=== PATIENT | male | born 1935 | race Caucasian/White ===

== ENCOUNTER 2016-03-11 09:00 | Inpatient (IN) | payer OTHER ==
[~2016-03-11] VITALS: Ht 167.6 cm; Wt 81.6 kg
[2016-03-11] VITALS (7 sets, daily range): BP systolic 97–124; BP diastolic 43–63
[2016-03-11] MEDS ORDERED: ACETAMINOPHEN 500 MG TAB (TYLENOL) PO ONE (09:20)
[2016-03-11] MEDS ORDERED: HYDROmorphone 1 MG/ML (DILAUDID) SYRINGE IV ONE (09:20)
[2016-03-11 09:53] LABS: BASOPHILS % (AUTO) 0 % (0-2); EOSINOPHILS % (AUTO) 0 % (0-4); LYMPHOCYTES # (AUTO) 0.9 X10^3; MEAN CORPUSCULAR HGB CONC 33.1 g/dL (31.0-37.0); MEAN CORPUSCULAR VOLUME 96 FL (80-100); MEAN PLATELET VOLUME 10.7 FL (6.0-9.5); MONOCYTES # (AUTO) 1.1 X10^3; MONOCYTES % (AUTO) 10 % (3-11); NEUTROPHILS # (AUTO) 9.1 X10^3; NEUTROPHILS % (AUTO) 82 % (51-67); PLATELET COUNT 132 10^3uL (150-450); WHITE BLOOD COUNT 11.18 10^3uL (4.0-11.0)
[2016-03-11 09:55] LABS: MEAN CORPUSCULAR HEMOGLOBIN 31.8 PG (26.0-34.0)
[2016-03-11 09:56] LABS: CLARITY,URINE Clear; GLUCOSE, URINE (UA) Negative (Negative); LEUKOCYTE ESTERASE ,URINE Negative (Negative); PH,URINE 7.5 (5.0 - 8.0); UROBILINOGEN,URINE >=8.0 mg/dL (0.2-1.0)
[2016-03-11 10:00] LABS: BILIRUBIN,URINE 1+ (Negative); COLOR,URINE Dark Yellow
[2016-03-11 10:05] LABS: RBC,URINE None Seen /HPF; URINE CENTRIFUGED VOLUME 12 mL
[2016-03-11 10:07] LABS: ANION GAP 16.3 MEQ/L (3-15); CALCULATED IONIZED CALCIUM 4.1 mg/dL (3.8-4.6); TOTAL PROTEIN 6.7 g/dL (6.4-8.5)
[2016-03-11 10:08] LABS: INFLUENZA VIRUS TYPE A ANTIBOD Negative (NEGATIVE); INFLUENZA VIRUS TYPE B ANTIBOD Negative (NEGATIVE)
--- NOTE | 2016-03-11 10:30 | NUR ---
Dr. Mackey speaks with Hospitalist (Dr. Stanley) who says he will come to ED to evaluate patient.
[2016-03-11] MEDS ORDERED: NOREPINEPHRINE 4 MG in D5W (IVPB) 250 ML IV PRN (11:10)
[2016-03-11] MEDS ORDERED: NS FLUSH 3 ML PRN IV (11:30)
[2016-03-11] MEDS ORDERED: NS FLUSH 10 ML PRN IV (11:30)
--- NOTE | 2016-03-11 11:34 | NUR ---
pt is a [facility] pt, dr. simon is pcp, [facility] to [facility], had a talk with er and decided to stay here, manager concrete is in [place] dr ramos
--- NOTE | 2016-03-11 11:36 | NUR ---
taken to icu by supervisor rough end, zenaida talked with er , admit accepted per dr. michelle
[2016-03-11] MEDS ORDERED: ACETAMINOPHEN 325 MG TAB (TYLENOL) PO PRN (12:10)
[2016-03-11] MEDS ORDERED: VANCOMYCIN PHARMACY PROTOCOL IV SCH (12:10)
[2016-03-11] MEDS ORDERED: ONDANSETRON 2 MG/ML (Z0FRAN) 2 ML VIAL IV PRN (12:10)
[2016-03-11 12:50] LABS: AMPHETAMINE SCREEN, URINE Negative (Negative); CANNABINOID SCREEN, URINE Negative (Negative); METHAMPHETAMINE SCREEN URINE S NEGATIVE (NEGATIVE); OPIATE SCREEN URINE Negative (Negative); PROPOXYPHENE STAT NEGATIVE (NEGATIVE)
[2016-03-11] MEDS: ASPIRIN 81 MG CHEW (CHILDREN'S ASA) PO SCH (13:20)
[2016-03-11] MEDS: PANTOPRAZOLE 40 MG (PROTONIX) TAB PO SCH (13:21)
[2016-03-11] MEDS: PIPERACILLIN/TAZOBACTAM 3.375 GM in SODIUM CHLORIDE 100 ML IV SCH ×2 (14:00→21:50)
[2016-03-11] MEDS: VANCOMYCIN 1,000 MG in SODIUM CHLORIDE 250 ML IV SCH (15:22)
[2016-03-11] MEDS ORDERED: POLYETHYLENE GLYCOL 17 GM (MIRALAX) PACKET PO ONE (15:45)
--- NOTE | 2016-03-11 15:46 | NUR ---
MED REC COMPLETE--current med list obtained from patient report (written list and interview).
--- NOTE | 2016-03-11 15:59 | NUR ---
Vancomycin Dosing: Pharmacy Managed S: Pneumonia O: 80 yo male with CXR showing patchy infiltrate in right lung, WBC 11.2, CRP 4.10 mg/dL, Tmax 101.3, SCr 0.83 mg/dL, CrCl 71 mL/min. A/P: Zosyn and Vancomycin started empirically. Recommend vancomycin 1 gram IV q12h to achieve therapeutic trough of 15-20 mcg/mL. Draw trough prior to 4th dose (03/12/16 at 2030).
[2016-03-11] MEDS: oxyCODONE/ACETAMINOPHEN 5MG-325 MG (PERCOCET) TABLET PO PRN ×2 (16:11→20:13)
[2016-03-11] MEDS: SUCRALFATE 1 GM (CARAFATE) TAB PO SCH ×2 (17:54→20:42)
--- NOTE | 2016-03-11 18:50 | NUR ---
Report received, care assumed. Pt resting on bed, talking on phone. No needs at this time. Call light in reach.
--- NOTE | 2016-03-11 18:55 | NUR ---
director of student services here to visit with patient. (Manju, RN with [facility]). Pt vocalizes concerns with how to get home when dismissed. Manju states they will arrange for transport home, just call when patient is ready to go home.
--- NOTE | 2016-03-11 19:18 | NUR ---
Dr. Stanley in with patient to discuss scans and plan of care.
--- NOTE | 2016-03-11 19:29 | NUR ---
Provided pt with copies of imaging reports per Dr. Stanley. Denied other needs.
--- NOTE | 2016-03-11 20:15 | NUR ---
Pt c/o pain in back and abdomen, rates 8-9/10. Gave one Percocet 5 per prn order. Pt resting in bed watching tv. Denies other needs. Call light in reach.
[2016-03-11] MEDS ORDERED: SALINE NASAL SPRAY (OCEAN) 45 ML BTL PRN (22:10)
[2016-03-11] MEDS ORDERED: CHLORASEPTIC LOZENGE MM PRN (22:10)
[2016-03-11] MEDS: ARTIFICIAL TEARS (REFRESH) OPHTHALMIC DROPS OU PRN (22:17)
--- NOTE | 2016-03-11 22:19 | NUR ---
Administered Refresh eye drops for c/o dry eyes. Pt denies other needs. Lights turned down. Pt ready to sleep more. Call light in reach.
--- NOTE | 2016-03-11 23:40 | NUR ---
Pt appears to be sleeping, eyes closed, respirations even et unlabored. No signs discomfort. No needs at this time.
[2016-03-12] VITALS (7 sets, daily range): BP systolic 100–114; BP diastolic 44–58
--- NOTE | 2016-03-12 | NUR ---
Vancomycin per EMAR due at this time, ordered Q12H. Last dose given at 1522, next due should be given at 0300. Will hold dose until then.
[2016-03-12] MEDS: oxyCODONE/ACETAMINOPHEN 5MG-325 MG (PERCOCET) TABLET PO PRN ×5 (00:23→22:08)
--- NOTE | 2016-03-12 00:25 | NUR ---
Pt c/o discomfort, rates pain at 8/10. Gave one Percocet. Explained to pt that order for pain meds is not to exceed 5 in one 24 hour period. Pt stated he understood. Explained that taking them every four hours would leave him uncovered for a significant period of time. Pt stated he understood. Denied other needs. Assisted pt with blankets. Call light in reach.
[2016-03-12] MEDS: VANCOMYCIN 1,000 MG in SODIUM CHLORIDE 250 ML IV SCH ×3 (02:07→20:45)
[2016-03-12] MEDS ORDERED: METOCLOPRAMIDE 10 MG/2 ML (REGLAN) VIAL IV ONE (05:15)
[2016-03-12] MEDS ORDERED: morphine INJ 4 MG/ML 1 ML SYRINGE IV ONE (05:15)
[2016-03-12] MEDS ORDERED: morphine INJ 2 MG/ML 1 ML SYRINGE ONE (05:21)
[2016-03-12 05:46] LABS: BASOPHILS % (AUTO) 0 % (0-2); EOSINOPHILS % (AUTO) 0 % (0-4); LYMPHOCYTES # (AUTO) 1.3 X10^3; MEAN CORPUSCULAR HGB CONC 34.1 g/dL (31.0-37.0); MEAN CORPUSCULAR VOLUME 96 FL (80-100); MEAN PLATELET VOLUME 11.2 FL (6.0-9.5); MONOCYTES % (AUTO) 8 % (3-11); NEUTROPHILS # (AUTO) 9.8 X10^3; NEUTROPHILS % (AUTO) 80 % (51-67); PLATELET COUNT 134 10^3uL (150-450); WHITE BLOOD COUNT 12.24 10^3uL (4.0-11.0)
[2016-03-12 06:02] LABS: ALBUMIN 3.8 g/dL (3.4-5.0); ANION GAP 17.5 MEQ/L (3-15); CALCULATED IONIZED CALCIUM 3.9 mg/dL (3.8-4.6); TOTAL PROTEIN 6.9 g/dL (6.4-8.5)
[2016-03-12 06:03] LABS: MEAN CORPUSCULAR HEMOGLOBIN 32.8 PG (26.0-34.0)
[2016-03-12] MEDS: PIPERACILLIN/TAZOBACTAM 3.375 GM in SODIUM CHLORIDE 100 ML IV SCH ×3 (06:32→22:29)
[2016-03-12] MEDS: SUCRALFATE 1 GM (CARAFATE) TAB PO SCH ×4 (07:33→20:45)
--- NOTE | 2016-03-12 07:35 | NUR ---
Patient C/O pain to multiple areas of his body. Worst pain is rated at 8/10 to his left shoulder. Oxycodone 5/325 x 1 tablet was given for pain relief.
[2016-03-12] MEDS ORDERED: HALL'S COUGH DROPS MM PRN (07:45)
[2016-03-12] MEDS ORDERED: METOCLOPRAMIDE 10 MG/2 ML (REGLAN) VIAL IV PRN (08:15)
--- NOTE | 2016-03-12 08:20 | NUR ---
Patient left unit via ER cart for ordered x-ray of chest and left shoulder. Ptient transfered to cartunder his own power.
--- NOTE | 2016-03-12 08:45 | NUR ---
Patient returns to ICU via ER cart from radiology. Patient transfers back to Bed own his own power.
[2016-03-12] MEDS ORDERED: BIFIDOBACTERIUM INFANTIS 4 MG PO SCH (09:05)
[2016-03-12] MEDS: PANTOPRAZOLE 40 MG (PROTONIX) TAB PO SCH (09:27)
[2016-03-12] MEDS: ASPIRIN 81 MG CHEW (CHILDREN'S ASA) PO SCH (09:27)
[2016-03-12] MEDS: NS FLUSH 3 ML DAILY IV SCH (09:28)
[2016-03-12 09:47] LABS: CREATINE KINASE 75 U/L (55-170)
[2016-03-12] MEDS: LIDOCAINE 5% TOP PRN ×2 (09:52→18:32)
[2016-03-12] MEDS: ARTIFICIAL TEARS (REFRESH) OPHTHALMIC DROPS OU PRN ×2 (09:54→16:20)
[2016-03-12] MEDS: ACIDOPHILUS/LACTOBACILLUS SPOROGENES 1 TABLET PO SCH (10:06)
--- NOTE | 2016-03-12 10:15 | NUR ---
Patient is given a saline enema per physician order. Patient tolerates procedure well.
--- NOTE | 2016-03-12 10:25 | NUR ---
Patient has a large semi liquid gilmore colored BM. Patient states his abdomen does not feel as distended as before the saline enema was given.
[2016-03-12] MEDS ORDERED: SODIUM CHLORIDE 50 ML IV ONE (10:32)
[2016-03-12] MEDS: LACTATED RINGERS 1,000 ML IV SCH ×2 (11:27→20:45)
[2016-03-13] VITALS (9 sets, daily range): BP systolic 101–131; BP diastolic 39–58
[2016-03-13] MEDS: oxyCODONE/ACETAMINOPHEN 5MG-325 MG (PERCOCET) TABLET PO PRN ×5 (02:34→20:13)
--- NOTE | 2016-03-13 02:48 | NUR ---
Has rested through shift, with awakening for toileting and requests pain medication q 4 hours, removed two containers of prescription medications ointments Nifedipine 0.2% cream and melox/lamotrig/lidoc/prilo cream, placed on ICU medication cart for review by pharmacy and MD order.
[2016-03-13] MEDS: PIPERACILLIN/TAZOBACTAM 3.375 GM in SODIUM CHLORIDE 100 ML IV SCH ×3 (05:26→21:58)
[2016-03-13] MEDS: SUCRALFATE 1 GM (CARAFATE) TAB PO SCH ×4 (06:18→21:20)
[2016-03-13] MEDS: LACTATED RINGERS 1,000 ML IV SCH ×2 (06:18→18:14)
[2016-03-13 06:39] LABS: BASOPHILS % (AUTO) 0 % (0-2); EOSINOPHILS % (AUTO) 0 % (0-4); LYMPHOCYTES # (AUTO) 1.4 X10^3; MEAN CORPUSCULAR HGB CONC 33.1 g/dL (31.0-37.0); MEAN CORPUSCULAR VOLUME 97 FL (80-100); MEAN PLATELET VOLUME 11.3 FL (6.0-9.5); MONOCYTES # (AUTO) 0.8 X10^3; MONOCYTES % (AUTO) 10 % (3-11); NEUTROPHILS # (AUTO) 5.2 X10^3; NEUTROPHILS % (AUTO) 70 % (51-67); PLATELET COUNT 104 10^3uL (150-450); WHITE BLOOD COUNT 7.47 10^3uL (4.0-11.0)
--- NOTE | 2016-03-13 06:53 | NUR ---
Has requested another dose of Percocet, wants every 4 hours, has remained in bed with shoes on, so that he can be stable when he needs to get up to toilet, refuses offers to remove. Carafate taken po this morning, uses urinal in bed, IV Zosyn infusing R IV.
[2016-03-13 06:55] LABS: MEAN CORPUSCULAR HEMOGLOBIN 32.1 PG (26.0-34.0)
[2016-03-13 06:56] LABS: ALBUMIN 3.1 g/dL (3.4-5.0); ANION GAP 12.4 MEQ/L (3-15); PHOSPHORUS 3.2 mg/dL (2.4-4.9)
[2016-03-13 07:25] LABS: ERYTHROCYTE SEDIMENTATION RT* 25 mm/hr (0-19)
--- NOTE | 2016-03-13 08:30 | NUR ---
Pt. reports that he is "getting worse" this morning, but is not clear about why he feels he is getting worse. He voices concerns that he is "losing it". Pt. states he has pain to low back, L shoulder, legs and abdomen, rates pain 4-18 to various areas. He denies nausea at this time, though he insists on keeping emesis bag near. Denies dyspnea, wearing O2 @ 3L/NC to maintain SpO2 above 90%.
[2016-03-13] MEDS: ACIDOPHILUS/LACTOBACILLUS SPOROGENES 1 TABLET PO SCH (08:32)
[2016-03-13] MEDS: ASPIRIN 81 MG CHEW (CHILDREN'S ASA) PO SCH (08:32)
[2016-03-13] MEDS: PANTOPRAZOLE 40 MG (PROTONIX) TAB PO SCH (08:32)
[2016-03-13] MEDS ORDERED: POLYETHYLENE GLYCOL 17 GM (MIRALAX) PACKET PO SCH (09:00)
--- NOTE | 2016-03-13 09:07 | NUR ---
NUTRITION ASSESSMENT Level 1 Patient: Robel Jones Age/Sex: 80/M Date Screened: 03-13-16 Weight: 182.3#/82.9 kg Height: 66 inches Primary Diagnosis: sepsis Diet Order: CL Relevant labs: potassium 3.2, glucose 83, CRP 8.70 Food allergies: N Nutrition Assessment Criteria Age over 80: N Body Mass Index (BMI) under 19: N Admission Screening Indicates Risk? 3 points Moderate/High Risk Diagnosis: 3 points TPN or PPN: N NPO or clear liquid diet: Yes Serum Glucose <70 or >180: N Hgb A1c >6.7: N/A Total: 6 points Risk Screen: __ Patient at low nutritional risk based on available data; reevaluate in 5-7 days __ Patient at moderate nutritional risk based on available data; reevaluate in 3-5 days _X_ Patient at high nutritional risk; complete Nutrition Assessment within 48 hours of admission.
[2016-03-13] MEDS: NS FLUSH 3 ML DAILY IV SCH (09:47)
[2016-03-13] MEDS: VANCOMYCIN 1,000 MG in SODIUM CHLORIDE 250 ML IV SCH ×2 (09:47→21:20)
[2016-03-13] MEDS: LIDOCAINE 5% TOP PRN (11:15)
--- NOTE | 2016-03-13 11:40 | NUR ---
Pt. has received PRN Percocet and Lidocaine cream - see EMAR. Pt. refuses bath and oral care until after pain medication has started to help.
--- NOTE | 2016-03-13 12:38 | NUR ---
MULTIDISCIPLINARY MTG/DR. HARGROVE: Pt. reports having pain everywhere. Pt. is using a lidocaine cream for his shoulder pain. Pt. won't participate in therapy or get out of bed. Pt. is a [facility] participant. No discharge needs identified at this time.
--- NOTE | 2016-03-13 13:02 | NUR ---
NUTRITION ASSESSMENT Level II Patient: Robel White Age/Sex: 80/M Date Assessed: 03-13-16 ASSESSMENT Pertinent History: Patient admitted with sepsis and screened at high nutritional risk secondary to diagnosis and significant constipation from which pt. avoids going to the bathroom because it hurts. PMHx includes CAD, PUD, depression, cerebral aneurysm, chronic pain due to osteoarthritis and diverticulosis. He lives alone at home. No weight change per patient, no GI concerns other than constipation/abdominal pain. Meds/Nutrition: Miralax, Lactobacillus Acidophilus, Lactated Ringers, Protonix Weight: 182.3#/82.9 kg Height: 66 inches Body Mass Index (BMI): 29.5 [place] Body Weight : 142#/64.5 kg % IBW: 128% GASTROINTESTINAL Appetite: poor, taking bites-25% Diet Order: CL Unintentional loss of >10 lbs. in 3 months: N Difficult to chew/swallow: N Diabetes: N Relevant Labs: potassium 3.2, glucose 83, CRP 8.70 Calculations for Nutritional Assessment Estimated calorie needs: 22-25 kcals/kg = 1,800-2,050 kcals Estimated protein needs: 1.0-1.1 g/kg = 82-90 g./day DIAGNOSIS 1. Nutrition Diagnosis: Altered GI function related to inadequate bowel movements as evidenced by constipation with pt. reporting he holds it in because it hurts to go. NUTRITIONAL INTERVENTION Goal: Patient will receive adequate nutrition to meet his needs. Plan: When diet advanced to solid foods, recommend we gradually increase fiber and fluid in his diet to help promote normal bowel movements, and encourage whatever physical activity is safe for him according to PT/OT. His severe back pain is keeping him bed bound, and this is exacerbating poor bowel function. MONITORING & EVALUATION __ Monitor patients menu selections __ Monitor patients food intake per nursing notes _X_ Monitor NPO/clear liquid days __ Monitor lab values __ Monitor I&O __ Other
[2016-03-13] MEDS: HYDROmorphone 1 MG/ML (DILAUDID) SYRINGE IV PRN (15:59)
[2016-03-13] MEDS ORDERED: NIFEDIPINE TOP SCH (17:30)
[2016-03-13] MEDS ORDERED: HOME MEDICATION TOP PRN ×2 (18:20→18:25)
--- NOTE | 2016-03-13 19:09 | NUR ---
Robel has generalized pain this afternoon at 10/10 on the pain scale. Lortab PO given [id number] and IV dilaudid given [id number]. The patient is able to communicate effectively and makes needs known. VSS and wnl. Sp02 above 92 on 2LNC. Respirations and even and unlabored, skin is clean and dry.
--- NOTE | 2016-03-13 19:10 | NUR ---
Report received, care assumed. Pt resting quietly in bed. No needs at this time. Call light in reach.
--- NOTE | 2016-03-13 20:15 | NUR ---
Pt c/o pain generalized all over. Rated 8/10. Gave one Percocet 5 per prn order. Pt is requesting Dilaudid at this time. Explained medication is ordered prn only for pain not controlled by Percocet and is available every 8 hours. Pt stated his understanding. Denies other needs. Call light in reach.
--- NOTE | 2016-03-13 22:30 | NUR ---
Pt sleeping, eyes closed, respirations even et unlabored. No signs discomfort. Woke while RN attending IV machines. Pt asks for Dialudid medicine. Explained it's not available yet. Pt stated his understanding. Then asked for Percocet at 11:00 (2300). Explained he received Percocet just about two hours ago. Pt did not state he was having pain at this time, just asked when he could have pain med. Will continue to monitor. No other needs at this time. Call light in reach.
[2016-03-14] VITALS: BP 130/56
[2016-03-14] MEDS: oxyCODONE/ACETAMINOPHEN 5MG-325 MG (PERCOCET) TABLET PO PRN ×3 (00:25→20:33)
--- NOTE | 2016-03-14 00:25 | NUR ---
Gave one Percocet 5 for c/o back, head, arm, shoulder and abdomen pain. Pt rated pain in varying degrees throughout body from 8-10. No other needs. Call light in reach.
[2016-03-14] MEDS: HYDROmorphone 1 MG/ML (DILAUDID) SYRINGE IV PRN (03:42)
--- NOTE | 2016-03-14 03:42 | NUR ---
Dilaudid 0.5mg IV administered for c/o pain. No other needs. Call light in reach.
--- NOTE | 2016-03-14 03:45 | NUR ---
O2 sats 87-89%. Increased O2 to 4L per NC. Pt takes shallow breaths and breathes through mouth at times while sleeping. O2 sats now 90-92%. Will continue to monitor.
[2016-03-14 03:50] VITALS: BP 124/62
[2016-03-14 03:51] VITALS: BP 124/62
[2016-03-14] MEDS: LACTATED RINGERS 1,000 ML IV SCH ×2 (05:57→22:10)
[2016-03-14] MEDS: PIPERACILLIN/TAZOBACTAM 3.375 GM in SODIUM CHLORIDE 100 ML IV SCH ×2 (05:58→15:50)
[2016-03-14 06:15] LABS: BASOPHILS % (AUTO) 0 % (0-2); EOSINOPHILS % (AUTO) 0 % (0-4); LYMPHOCYTES # (AUTO) 0.9 X10^3; MEAN CORPUSCULAR HGB CONC 34.1 g/dL (31.0-37.0); MEAN CORPUSCULAR VOLUME 95 FL (80-100); MEAN PLATELET VOLUME 11.5 FL (6.0-9.5); MONOCYTES # (AUTO) 0.8 X10^3; MONOCYTES % (AUTO) 9 % (3-11); NEUTROPHILS # (AUTO) 6.7 X10^3; NEUTROPHILS % (AUTO) 79 % (51-67); PLATELET COUNT 119 10^3uL (150-450); WHITE BLOOD COUNT 8.39 10^3uL (4.0-11.0)
[2016-03-14 06:23] LABS: MEAN CORPUSCULAR HEMOGLOBIN 32.2 PG (26.0-34.0)
[2016-03-14 06:49] LABS: ANION GAP 15.2 MEQ/L (3-15); MAGNESIUM* 1.9 mg/dL (1.6-2.3); PHOSPHORUS 3.1 mg/dL (2.4-4.9)
[2016-03-14] MEDS ORDERED: POTASSIUM CHLORIDE ER 20 MEQ TABLET PO ONE ×2 (07:45→16:10)
[2016-03-14] MEDS ORDERED: NOREPINEPHRINE 4 MG in D5W (IVPB) 250 ML IV PRN (07:50)
[2016-03-14] MEDS ORDERED: oxyCODONE/ACETAMINOPHEN 5MG-325 MG (PERCOCET) TABLET PO PRN (08:00)
[2016-03-14] MEDS ORDERED: METOCLOPRAMIDE 10 MG/2 ML (REGLAN) VIAL IV PRN (08:15)
[2016-03-14] MEDS ORDERED: HALL'S COUGH DROPS MM PRN (08:45)
[2016-03-14] MEDS ORDERED: ASPIRIN 81 MG CHEW (CHILDREN'S ASA) PO SCH (09:00)
[2016-03-14] MEDS ORDERED: LIDOCAINE 5% TOP PRN (09:00)
[2016-03-14] MEDS ORDERED: ASPIRIN 325 MG PO SCH (09:00)
[2016-03-14] MEDS ORDERED: VANCOMYCIN 1,000 MG in SODIUM CHLORIDE 250 ML IV SCH (09:00)
[2016-03-14] MEDS ORDERED: HOME MEDICATION TOP PRN ×2 (09:00→18:20)
[2016-03-14] MEDS ORDERED: SALINE NASAL SPRAY (OCEAN) 45 ML BTL PRN (09:00)
[2016-03-14] MEDS ORDERED: HYDROmorphone 1 MG/ML (DILAUDID) SYRINGE IV PRN (09:13)
[2016-03-14] MEDS ORDERED: ACETAMINOPHEN 325 MG TAB (TYLENOL) PO PRN (09:13)
[2016-03-14] MEDS ORDERED: ARTIFICIAL TEARS (REFRESH) OPHTHALMIC DROPS OU PRN (09:16)
[2016-03-14] MEDS ORDERED: SODIUM CHLORIDE FLUSH 10 ML SYR IV PRN (09:17)
[2016-03-14] MEDS ORDERED: SODIUM CHLORIDE FLUSH 3 ML SYR IV PRN (09:17)
--- NOTE | 2016-03-14 09:55 | NUR ---
Request for information received from Shannon at [facility]. Information faxed and a message left with Shannon to contact SW with any questions.
[2016-03-14 10:48] VITALS: BP 137/59
[2016-03-14] MEDS ORDERED: SUCRALFATE 1 GM (CARAFATE) TAB PO SCH (11:30)
[2016-03-14] MEDS: ACIDOPHILUS/LACTOBACILLUS SPOROGENES 1 TABLET PO SCH (11:32)
[2016-03-14] MEDS: POLYETHYLENE GLYCOL 17 GM (MIRALAX) PACKET PO SCH (11:33)
[2016-03-14] MEDS: SODIUM CHLORIDE FLUSH 3 ML SYR IV SCH (11:33)
[2016-03-14] MEDS: PANTOPRAZOLE 40 MG (PROTONIX) TAB PO SCH (11:34)
--- NOTE | 2016-03-14 11:43 | NUR ---
Vancomycin Dosing: Pharmacy Managed S: Pneumonia O: 80 yo male with CXR showing patchy infiltrate in right lung, WBC 11.2 decreased to 8.39, CRP increased from 4.10 mg/dL to 8.1 mg/dL, Tmax 101.3 temperature still elevated at 99.5, SCr decreased from 0.83 mg/dL to 0.64, CrCl has increased from 71 mL/min to 95 mL/min. Previous values were taken from 03/11/16 and current values from 03/14/16. Vancomycin trough was drawn 03/12/16 at 2030 and was 9.4 mcg/mL. A/P: Initial recommended dose on 03/11/16 was vancomycin 1 gram IV q12h to achieve predicted trough of 15-20 mcg/mL. New recommended dose of vancomycin 1500 mg IV q12h to achieve predicted trough of 14.3 mcg/mL based on improved creatinine clearance and a dose of 17.9 mg/kg. Redraw trough prior to 5th dose after change(03/16/16 at 0830).
[2016-03-14] MEDS: VANCOMYCIN 1500 MG in NS IV 300 ML IV SCH ×6 (11:53→22:13)
--- NOTE | 2016-03-14 12:00 | NUR ---
Patient transferred per wheelchair from ICU to room 309. He is resistant to increased activity but does consent to walk from the doorway to bed and sit up in a chair.
[2016-03-14] MEDS ORDERED: VANCOMYCIN PHARMACY PROTOCOL IV SCH (12:10)
--- NOTE | 2016-03-14 12:30 | NUR ---
BAck to bed with stand by assist.
[2016-03-14] MEDS: SUCRALFATE 1 GM (CARAFATE) TAB PO SCH ×3 (13:13→22:11)
[2016-03-14] MEDS: ASPIRIN 325 MG TAB PO SCH (13:13)
[2016-03-14 15:53] VITALS: BP 140/80
--- NOTE | 2016-03-14 19:30 | NUR ---
Patient has been able to walk from his bed to the bathroom all afternoon and has gained stamina each time. Rises from the bed alone by late afternoon. Able to take meds. whole- no IV pain meds. have been requested this shift.
[2016-03-14 20:25] VITALS: BP 120/57
[2016-03-14] MEDS ORDERED: COMPOUNDED BY PHARMACY 1 EACH ONE (22:08)
[2016-03-14] MEDS: SIMvastatin 20 MG (ZOCOR) TAB PO SCH (22:12)
--- NOTE | 2016-03-14 23:15 | NUR ---
Due to infilration in Right arm IV sites, attempt x 2 to establish site in L arm without success. Upper site in right arm flushes with ease without pain. Fluid and antibiotic infusions moved to this site and distal site in right arm dc'd.
[2016-03-15] VITALS (7 sets, daily range): BP systolic 117–158; BP diastolic 62–94
--- NOTE | 2016-03-15 00:30 | NUR ---
Dilaudid 1mg administered for restlessness, arm pain and generalized discomfort. Oxygen at 4 liters.
--- NOTE | 2016-03-15 00:30 | NUR ---
O2 saturation 86% on 3L . Increased to 4L/NC. RT notified. Sa02 increases to 94%.
[2016-03-15] MEDS: oxyCODONE/ACETAMINOPHEN 5MG-325 MG (PERCOCET) TABLET PO PRN ×5 (01:03→20:12)
[2016-03-15] MEDS: PIPERACILLIN/TAZOBACTAM 3.375 GM in SODIUM CHLORIDE 100 ML IV SCH ×4 (01:20→22:00)
[2016-03-15] MEDS ORDERED: HYDROmorphone 1 MG/ML (DILAUDID) SYRINGE IV PRN (04:40)
--- NOTE | 2016-03-15 06:20 | NUR ---
Patient has gotten increasingly worse throughout night. Slightly confused, Wheezy, weaker, and frequent c/o pain. Up to bathroom and became dizzy when arising. Voices that he notices his wheeze. RT notified and will evaluate and treat patient soon.
[2016-03-15] MEDS: ALBUTEROL 0.083% NEB SOLUTION 2.5 MG/3 ML VIAL INH PRN ×2 (06:26→10:57)
[2016-03-15] MEDS: PANTOPRAZOLE 40 MG (PROTONIX) TAB PO SCH (07:15)
[2016-03-15] MEDS: SUCRALFATE 1 GM (CARAFATE) TAB PO SCH ×4 (07:16→20:11)
[2016-03-15 08:19] LABS: ABG OXYGEN SATURATION 95 % (95-98); ABG PCO2 43 mmHg (35-45); ABG PH 7.37 (7.35-7.45); ABG PO2 77 mmHg (80-105)
[2016-03-15 08:20] LABS: ARTERIAL BLOOD GAS DELIVERY nc
[2016-03-15] MEDS ORDERED: COMPOUNDED BY PHARMACY 1 EACH ONE (08:24)
[2016-03-15] MEDS ORDERED: SODIUM CHLORIDE 100 ML ONE (08:25)
[2016-03-15] MEDS: SODIUM CHLORIDE FLUSH 3 ML SYR IV SCH (09:00)
[2016-03-15] MEDS: POLYETHYLENE GLYCOL 17 GM (MIRALAX) PACKET PO SCH (09:00)
[2016-03-15] MEDS ORDERED: POTASSIUM CHLORIDE ER 20 MEQ TABLET PO ONE (09:23)
[2016-03-15] MEDS: LACTATED RINGERS 1,000 ML IV SCH ×3 (09:23→16:05)
[2016-03-15] MEDS: ACIDOPHILUS/LACTOBACILLUS SPOROGENES 1 TABLET PO SCH (09:23)
[2016-03-15] MEDS: ASPIRIN 325 MG TAB PO SCH (09:23)
--- NOTE | 2016-03-15 10:09 | NUR ---
0730- Pt sleeping, remains on 4L nc- Resp even, nonlab while at this time. Skin warm, dry. LR @100ml/hr and Zosyn @25ml/hr infusing as ordered to 20g IV in RAC. Site without redness/swelling. 899- Pt to Rad. for CXR. 914- Pt back to room from CXR. Pt ambulated to/from bed using cane and SBA. Gait slow but steady. States he still doesn't feel "well". Pt took AM meds without difficulty with sips of water. Dr. Laws from [facility] came to see pt at this time. This nurse attempted 2nd IV start for Vanco infusion, but was unsuccessful after 2 attempts. 1000- Pt given Percocet 5mg PO as ordered at request for c/o pain in arms, legs, neck and back. Call light within reach, yellow gown/socks in place. Pt refuses to have 2nd bedrail up- states it makes him "feel closed in."
[2016-03-15] MEDS: VANCOMYCIN 1500 MG in NS IV 300 ML IV SCH ×6 (11:01→21:26)
[2016-03-15] MEDS: HYDROmorphone 1 MG/ML (DILAUDID) SYRINGE IV PRN ×2 (11:03→22:20)
--- NOTE | 2016-03-15 11:10 | NUR ---
Dilaudid 0.5mg IV given for c/o back pain rated 8/10.
--- NOTE | 2016-03-15 14:06 | NUR ---
Visited with Patricio Cochran. She stated she was up to visit with Pt. yesterday. Pt. has been accepted to the [facility] and plans to move there 03/23/16. Pt. has told her he has family and friends that are able to help him move. Pt. will not be able to dis-enroll from their program until the end of February. She will help him with this process and she will also help him with the transition to the [facility] Home. In the meantime they will continue to provide services to Pt. once he is discharged from the hospital.
[2016-03-15] MEDS: ONDANSETRON 2 MG/ML (Z0FRAN) 2 ML VIAL IV PRN ×2 (14:12→22:00)
--- NOTE | 2016-03-15 14:23 | NUR ---
Pt c/o nausea- Zofran given as ordered. Pt given Percocet for back pain after Zofran administration. Zosyn infusing at 25ml/hr without difficulty.
[2016-03-15] MEDS ORDERED: ALBUTEROL INH SCH (17:30)
[2016-03-15] MEDS ORDERED: IPRATROPIUM INH SCH (17:30)
[2016-03-15] MEDS: ALBUTEROL/IPRATROPIUM 3MG-0.5MG/3ML (DUONEB) NEB VIAL INH SCH ×2 (17:49→23:19)
--- NOTE | 2016-03-15 18:16 | NUR ---
Pt resting in bed, c/o back pain throughout day. Addendum: 03/15/16 at 1816 by Alee Santos RN Remains on 4L nc. IVF infusing as ordered.
[2016-03-15] MEDS: SIMvastatin 20 MG (ZOCOR) TAB PO SCH (20:11)
--- NOTE | 2016-03-15 20:12 | NUR ---
Patient in bed. Very restless. Is alert, yet confused at times. Oxygen remains on at 4 liters. Wanting his Percocet. States that he has pain all over. Percocet 1 administered for left shoulder pain. Home cream applied to left shoulder, and left upper back area. Call light within reach.
--- NOTE | 2016-03-15 22:20 | NUR ---
Dilaudid 1mg administered as ordered for back pain. Patient remains restless. Assisted to the bathroom. Had loose BM. Returned to bed. Call light within reach. IV antibiotics infusing as ordered. SL intact without complications at site. Ambulates with cane and is unsteady when up. Staff assist patient when he is up to the bathroom.
[2016-03-16] MEDS: oxyCODONE/ACETAMINOPHEN 5MG-325 MG (PERCOCET) TABLET PO PRN ×3 (00:15→08:43)
--- NOTE | 2016-03-16 00:15 | NUR ---
Patient restless again. Asking for Percocet. Percocet administered. Patient complains of left arm pain. States it is an old injury. Oxygen saturation 98%. Respirations sl labored.
[2016-03-16] MEDS: HYDROmorphone 1 MG/ML (DILAUDID) SYRINGE IV PRN (00:30)
--- NOTE | 2016-03-16 04:15 | NUR ---
Patient rested well until now. Wanting Percocet for left shoulder pain. Is more calm at this time. Percocet given for arm pain and generalized discomfort. Oxygen remains at 4 liters. Call light within reach.
[2016-03-16 04:28] VITALS: BP 127/81
[2016-03-16] MEDS: ALBUTEROL/IPRATROPIUM 3MG-0.5MG/3ML (DUONEB) NEB VIAL INH SCH ×2 (05:09→10:38)
[2016-03-16] MEDS: PIPERACILLIN/TAZOBACTAM 3.375 GM in SODIUM CHLORIDE 100 ML IV SCH (06:00)
[2016-03-16 06:06] LABS: MEAN CORPUSCULAR HGB CONC 33.6 g/dL (31.0-37.0); MEAN CORPUSCULAR VOLUME 96 FL (80-100); PLATELET COUNT 143 10^3uL (150-450); WHITE BLOOD COUNT 11.78 10^3uL (4.0-11.0)
[2016-03-16 06:14] LABS: MEAN CORPUSCULAR HEMOGLOBIN 32.2 PG (26.0-34.0)
[2016-03-16 06:23] LABS: BAND NEUTROPHILS % 0 % (0-6); EOSINOPHILS % 0 % (0-4); LYMPHOCYTES # 0.5 #; MONOCYTES % 0 % (3-11); RBC MORPH NORMAL (NORMAL); SEGMENTED NEUTROPHILS % 96 % (51-67); TOTAL CELLS COUNTED 100
--- NOTE | 2016-03-16 06:30 | NUR ---
Resting quietly in bed. Apologizes for his behavior last evening. Oriented at this time. Wanted scds off. Respirations 24 and slightly labored. Has expiratory wheezes noted this morning throughout lung barton. No cough this morning. Oxygen remains on. No discomforts at this time.
[2016-03-16 06:35] LABS: ALBUMIN 3.5 g/dL (3.4-5.0); ANION GAP 18.7 MEQ/L (3-15); PHOSPHORUS 3.9 mg/dL (2.4-4.9)
[2016-03-16] MEDS: SUCRALFATE 1 GM (CARAFATE) TAB PO SCH (06:36)
[2016-03-16] MEDS: PANTOPRAZOLE 40 MG (PROTONIX) TAB PO SCH (06:36)
[2016-03-16 07:44] VITALS: BP 136/80
[2016-03-16] MEDS: SODIUM CHLORIDE FLUSH 3 ML SYR IV SCH (08:43)
[2016-03-16] MEDS: POLYETHYLENE GLYCOL 17 GM (MIRALAX) PACKET PO SCH (08:44)
[2016-03-16] MEDS: ASPIRIN 325 MG TAB PO SCH (08:44)
[2016-03-16] MEDS: ACIDOPHILUS/LACTOBACILLUS SPOROGENES 1 TABLET PO SCH (08:44)
[2016-03-16] MEDS: VANCOMYCIN 1500 MG in NS IV 300 ML IV SCH ×3 (08:46)
[2016-03-16 10:34] VITALS: BP 176/94
[2016-03-16] MEDS ORDERED: NITROGLYCERIN SUBLINGUAL 0.4 MG (NITROQUICK) TABLET SL PRN ×2 (10:35→11:17)
[2016-03-16] MEDS ORDERED: NITROGLYCERIN SUBLINGUAL 0.4 MG (NITROQUICK) TABLET SL ONE (10:40)
[2016-03-16] MEDS ORDERED: MAGNESIUM 1 GM/100 ML IVPB 100 ML IV ONE (10:50)
[2016-03-16] MEDS ORDERED: FUROSEMIDE 100 MG/10 ML (LASIX) VIAL IV SCH (10:55)
[2016-03-16 11:00] VITALS: BP 149/92
[2016-03-16] MEDS ORDERED: ALBUTEROL/IPRATROPIUM 3MG-0.5MG/3ML (DUONEB) NEB VIAL INH SCH (11:00)
--- NOTE | 2016-03-16 11:10 | NUR ---
Pt transferred to ICU room 346 via bed at this time. Pt on 7L oxymask. Chest pain "pressure" rated 2-3 out of 10.
[2016-03-16] MEDS ORDERED: ACETAMINOPHEN 325 MG TAB (TYLENOL) PO PRN (11:11)
[2016-03-16] MEDS ORDERED: HYDROmorphone 1 MG/ML (DILAUDID) SYRINGE IV PRN (11:14)
[2016-03-16] MEDS ORDERED: ONDANSETRON 2 MG/ML (Z0FRAN) 2 ML VIAL IV PRN (11:17)
[2016-03-16] MEDS ORDERED: METOCLOPRAMIDE 10 MG/2 ML (REGLAN) VIAL IV PRN (11:17)
[2016-03-16] MEDS ORDERED: ARTIFICIAL TEARS (REFRESH) OPHTHALMIC DROPS OU PRN (11:20)
[2016-03-16] MEDS ORDERED: oxyCODONE/ACETAMINOPHEN 5MG-325 MG (PERCOCET) TABLET PO PRN (11:21)
[2016-03-16] MEDS ORDERED: SODIUM CHLORIDE FLUSH 10 ML SYR IV PRN (11:22)
[2016-03-16] MEDS ORDERED: SODIUM CHLORIDE FLUSH 3 ML SYR IV PRN (11:23)
--- NOTE | 2016-03-16 11:24 | NUR ---
Pt calls Viri HOLCOMB into room- asks to have BP and HR checked- BP 176/94 HR 120s. TOOLING MANAGER notified this nurse- Pt assessed- C/o chest pain described as "pressure" rated 5/10. Dr. Henderson notified. Judy called for breathing treatment. O2 sats 87% 4L nc, RR 28 using accessory muscles, HR 124-126. 1034 Judy RT in room for treatment 1038- Dr. Henderson and med student to room. VORB for Nitro now. 1042- Judy RT running EKG now. 1044- Nitro placed in pt mouth, instructed pt to place under tongue. 1049- first Nitro undissolved on top of tongue- pt instructed again to move under tongue- nitro under tongue now. 1051- BP 147/93, HR 115, O2 sats 92% 5L oxymask. Chest pain rated 2-3 out of 10. States he has a "horrible" headache, asks for ice pack for headache- given now. 1054- BP 142/83, HR 116, O2 sats 91% 7L oxymask (titrated by Judy RT). When asked to rate chest pain- pt states, "my headaches too bad, I can't feel my chest pain anymore." 1059- Dr. Henderson gave VORB to transfer pt to unit- call placed to Chemo KLEIN in ICU for room number. Eun Shin RN notified.
[2016-03-16] MEDS ORDERED: ALBUTEROL 0.083% NEB SOLUTION 2.5 MG/3 ML VIAL INH PRN (11:25)
[2016-03-16] MEDS ORDERED: SUCRALFATE 1 GM (CARAFATE) TAB PO SCH (11:30)
[2016-03-16 11:35] LABS: ABG OXYGEN SATURATION 95 % (95-98); ABG PCO2 48 mmHg (35-45); ABG PH 7.33 (7.35-7.45); ABG PO2 81 mmHg (80-105)
[2016-03-16] MEDS ORDERED: HALL'S COUGH DROPS MM PRN (11:45)
[2016-03-16] MEDS ORDERED: ENOXAPARIN 80 MG/0.8 ML (LOVENOX) SYR SC ONE (11:55)
[2016-03-16] MEDS ORDERED: NITROGLYCERIN 2% OINTMENT (NITRO-BID) 1 GM UNIT DOSE PACKET TOP STA (11:55)
[2016-03-16] MEDS ORDERED: meTOprolol 5 MG/5 ML (LOPRESSOR) VIAL IV ONE (11:55)
[2016-03-16] MEDS ORDERED: MAGNESIUM 1 GM/100 ML IVPB 100 ML IV STA (12:41)
[2016-03-16] MEDS ORDERED: HOME MEDICATION TOP PRN ×2 (13:00→18:20)
[2016-03-16] MEDS ORDERED: SALINE NASAL SPRAY (OCEAN) 45 ML BTL PRN (13:00)
[2016-03-16 13:10] LABS: BILIRUBIN,URINE Negative (Negative); CLARITY,URINE Clear; COLOR,URINE Yellow; GLUCOSE, URINE (UA) Negative (Negative); LEUKOCYTE ESTERASE, URINE Negative (Negative); UROBILINOGEN,URINE 0.2 mg/dL (0.2-1.0)
--- NOTE | 2016-03-16 13:54 | NUR ---
1110- Patient arrives to room 346 monitors placed and blood drawn via lab. On assessment the patient has expiratory wheezes is short of breath and complains of chest pain. Monitor reads sinus tachycardia. skin is dry,clean and face flushed. The patient is on 10L oxymask with SP02 of 93-95. 1200- IV dilaudid, PO percocet and sublingual NTG given for pain. 80 mg of IV lasix administered and Ramirez catheter inserted using sterile technique. UA sent. 20 gauge IV started in left hand. IV metroplol administered and IVPB Magnesium to infuse. Orders to transfer to [facility] are processed. 1300- Ex Andreia Murguia at the bedside for comfort and to collect the patients billfold, watch and keys. Patient reports relief of chest pain but continues to have chronic back pain. 1330- Report called to Saskia KLEIN at this time. 1345- Judy KLEIN in the room for breathing treatment at this time 1350- the patient exits with EMS via cart.
[2016-03-16] MEDS ORDERED: PIPERACILLIN/TAZOBACTAM 3.375 GM in SODIUM CHLORIDE 100 ML IV SCH (14:00)
[2016-03-16] MEDS ORDERED: LIDOCAINE 5% TOP PRN (21:00)
[2016-03-16] MEDS ORDERED: SIMvastatin 20 MG (ZOCOR) TAB PO SCH (21:00)
[2016-03-16] MEDS ORDERED: VANCOMYCIN 1,500 MG, VANCOMYCIN PHARMACY PROTOCOL 1 EACH in SODIUM CHLORIDE 250 ML, SOD... IV SCH (21:00)
[2016-03-17] MEDS ORDERED: PANTOPRAZOLE 40 MG (PROTONIX) TAB PO SCH (07:00)
[2016-03-17] MEDS ORDERED: ASPIRIN 325 MG TAB PO SCH (09:00)
[2016-03-17] MEDS ORDERED: POLYETHYLENE GLYCOL 17 GM (MIRALAX) PACKET PO SCH (09:00)
[2016-03-17] MEDS ORDERED: SODIUM CHLORIDE FLUSH 3 ML SYR IV SCH (09:00)
[2016-03-17] MEDS ORDERED: ACIDOPHILUS/LACTOBACILLUS SPOROGENES 1 TABLET PO SCH (09:00)
[2016-03-17] MEDS ORDERED: MAGNESIUM 1 GM/100 ML IVPB 100 ML IV ONE (11:10)
== END 2016-03-16 13:53 | disposition short-term general hospital (02) | DRG 871 ==
LOC: EDUNIT# 09:00 → ED 09:02 → ICU 11:10 → MED/SURG 03-14 12:22 → ICU 03-16 11:01
PROVIDERS: ADMIT Family Medicine; ATTEND Internal Medicine
DX: A41.9 Sepsis, unspecified organism (principal); J18.9 Pneumonia, unspecified organism; Z66 Do not resuscitate; J96.01 Acute respiratory failure with hypoxia; I21.4 Non-ST elevation (NSTEMI) myocardial infarction; G72.81 Critical illness myopathy; E87.2 Acidosis; R65.20 Severe sepsis without septic shock; J06.9 Acute upper respiratory infection, unspecified; K59.00 Constipation, unspecified; I25.10 Atherosclerotic heart disease of native coronary artery without angina pectoris; G89.29 Other chronic pain; M19.90 Unspecified osteoarthritis, unspecified site; B97.4 Respiratory syncytial virus as the cause of diseases classified elsewhere; Z79.82 Long term (current) use of aspirin
CPT/HCPCS: 36415; 36600; 70496; 71010; 71020; 73030; 74176; 74250; 80053; 80069; 80202; 80307; 80320; 80329; 81003; 81015; 82550; 82803; 83605; 83690; 83735; 83880; 84484; 85025; 85652; 86140; 87040; 87486; 87502; 87581; 87633; 87798; 93005; 93010; 94640; 94760; 96361; 96374; 99284; 99285

== ENCOUNTER → 2016-03-11 | Outpatient (CLI) | payer OTHER | LOC: EMS 08:50 | PROVIDERS: ATTEND Emergency Medicine | DX: R10.84 Generalized abdominal pain (principal); R11.0 Nausea; F22 Delusional disorders ==

== ENCOUNTER → 2016-03-16 | Outpatient (CLI) | payer OTHER | LOC: EMS 13:50 | PROVIDERS: ATTEND Internal Medicine | DX: I21.4 Non-ST elevation (NSTEMI) myocardial infarction (principal); J18.9 Pneumonia, unspecified organism; B97.4 Respiratory syncytial virus as the cause of diseases classified elsewhere ==

== ENCOUNTER → 2016-03-30 | Outpatient (REF) | LOC: CLAB.BLUES 12:50 | PROVIDERS: ATTEND Family Medicine | DX: R07.9 Chest pain, unspecified (principal) | CPT/HCPCS: 84484 ==

== ENCOUNTER → 2016-05-17 | Outpatient (REF) ==
[~2016-05-17] MED LIST: ASPI325T4 PO; BIFI4CAP PO; HYDR1AMP2 IV; METO25TA60 PO; NIFEDIPINE TOP; OXYC1TAB87 PO; PANT40TA3 PO; SCR1T1 PO; SMV20T PO; SUCR1ORA PO; [UNRECOGNIZED DRUG - CODE] TOP
[2016-05-17 13:49] LABS: MEAN PLATELET VOLUME 11.4 FL (6.0-9.5); WHITE BLOOD COUNT 6.52 10^3uL (4.0-11.0)
[2016-05-17 14:05] LABS: MEAN CORPUSCULAR HEMOGLOBIN 32.8 PG (26.0-34.0)
[2016-05-17 14:14] LABS: ALBUMIN 4.1 g/dL (3.4-5.0); ANION GAP 13.7 MEQ/L (3-15); CALCULATED IONIZED CALCIUM 4.2 mg/dL (3.8-4.6); TOTAL PROTEIN 6.9 g/dL (6.4-8.5)
== END ==
LOC: CLAB.BLUES 13:24
PROVIDERS: ATTEND Family Medicine
DX: I25.10 Atherosclerotic heart disease of native coronary artery without angina pectoris (principal); D69.3 Immune thrombocytopenic purpura
CPT/HCPCS: 80053; 83721; 85027